=== PATIENT | female | born 1935 | race Caucasian/White ===

== ENCOUNTER 2020-11-14 12:08 | Emergency (ER) | payer MEDICARE ==
[~2020-11-14] VITALS: Ht 167.6 cm; Wt 90.9 kg
--- NOTE | 2020-11-14 12:20 | PHYS DOC ---
General Adult EDM: Chief Complaint: NEAR SYCOPE HPI: HPI: Patient is an 84-year-old female being seen in the ER for near syncopal at [employer]. She states she has a history of dizziness due to previous CVA and she had a dizzy episode while at [employer] and she had to lay down. She states that prior to her laying down on the pew, she took a meclizine tablet. Patient denies passing out. She states that her dizziness is worse with position changes. She was noted to be incontinent of urine. Patient is alert and oriented x4 she denies any nausea, vomiting, headache, vision changes. 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 (TAJ KAPLAN APRN) Review of Systems: Review of Systems: 14 body systems of the review of systems have been reviewed. See HPI for pertinent positive and negative responses, otherwise all other systems are negative, nonpertinent or noncontributory (TAJ KAPLAN APRN) Physical Exam: PE: Constitutional: Well developed, well nourished, no acute distress, non-toxic appearance. [] HENT: Normocephalic, atraumatic, bilateral external ears normal, oropharynx moist, no oral exudates, nose normal. [] Eyes: PERRLA, EOMI, 3 mm pupils bilaterally, conjunctiva normal, no discharge. [] Neck: Normal range of motion, no stridor Cardiovascular:Heart rate bradycardia rhythm, no murmur [] Lungs & Thorax: Bilateral breath sounds clear to auscultation [] Abdomen: Bowel sounds normal, soft, no tenderness, no masses, no pulsatile mas ses. [] Skin: Warm, dry, no erythema, no rash. [] Back: Normal range of motion Extremities: No tenderness, no cyanosis, no clubbing, ROM intact, no edema. [] Neurologic: Alert and oriented X 3, normal motor function, normal sensory function, no focal deficits noted, no pronator drift, patient moving all 4 extremities. Left-sided deficit from previous CVA, normal speech. [] Psychologic: Affect normal, judgement normal, mood normal. [] (TAJ KAPLAN APRN) Current Patient Data: Labs: Laboratory Tests Test 11/14/20 12:35 White Blood Count 5.2 x10^3/uL Red Blood Count 4.33 x10^6/uL Hemoglobin 13.1 g/dL Hematocrit 39.3 % Mean Corpuscular Volume 91 fL Mean Corpuscular Hemoglobin 30 pg Mean Corpuscular Hemoglobin Concent 33 g/dL Red Cell Distribution Width 12.8 % Platelet Count 185 x10^3/uL Neutrophils (%) (Auto) 59 % Lymphocytes (%) (Auto) 30 % Monocytes (%) (Auto) 10 % Eosinophils (%) (Auto) 1 % Basophils (%) (Auto) 1 % Neutrophils # (Auto) 3.1 x10^3uL Lymphocytes # (Auto) 1.5 x10^3/uL Monocytes # (Auto) 0.5 x10^3/uL Eosinophils # (Auto) 0.0 x10^3/uL Basophils # (Auto) 0.0 x10^3/uL Sodium Level 142 mmol/L Potassium Level 3.6 mmol/L Chloride Level 104 mmol/L Carbon Dioxide Level 29 mmol/L Anion Gap 9 Blood Urea Nitrogen 12 mg/dL Creatinine 0.8 mg/dL Estimated GFR (Cockcroft-Gault) 68.0 BUN/Creatinine Ratio 15 Glucose Level 111 mg/dL Calcium Level 8.8 mg/dL Total Bilirubin 0.5 mg/dL Aspartate Amino Transf (AST/SGOT) 20 U/L Alanine Aminotransferase (ALT/SGPT) 21 U/L Alkaline Phosphatase 102 U/L Troponin I Quantitative < 0.017 ng/mL Total Protein 6.2 g/dL Albumin 3.1 g/dL Albumin/Globulin Ratio 1.0 Current Medications Medications (Trade) Dose Ordered Sig/Corey Route PRN Reason Start Time Stop Time Status Last Admin Dose Admin Meclizine HCl (Antivert) 25 mg 1X ONCE PO 11/14/20 12:30 11/14/20 12:31 UNV Sodium Chloride 1,000 ml @ 1,000 mls/hr 1X ONCE IV 11/14/20 12:30 11/14/20 13:29 UNV 11/14/20 13:13 (TAJ KAPLAN APRN) EKG: EKG: EKG performed by ER staff at 1237 shows sinus bradycardia at a rate of 52, no STEMI read by Dr. Allen at 1242 [] (TAJ KAPLAN APRN) Radiology/Procedures: Radiology/Procedures: PROCEDURE: CT HEAD AND CERVICAL SPINE WO CT HEAD AND C-SPINE WO History: Reason: dizziness / Spl. Instructions: / History: Comparison: None. Technique: Noncontrast CT imaging was performed of the head and cervical spine. Coronal and sagittal reconstructions were performed. Exposure: One or more of the following individualized dose reduction techniques were utilized for this examination: 1. Automated exposure control 2. Adjustment of the mA and/or kV according to patient size 3. Use of iterative reconstruction technique. Findings: Head CT: No intracranial hemorrhage. No mass effect. No hydrocephalus. Postoperative changes left suboccipital craniectomy. Encephalomalacia within the underlying left cerebellum. 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 Moderate foci of decreased attenuation within the hemispheric white matter, most often due to chronic microvascular ischemia. Imaged orbits are unremarkable. Imaged paranasal sinuses and mastoid air cells are clear. No acute calvarial fracture. Cervical spine CT: Straightening of the normal cervical lordosis. Slight grade 1 anterolisthesis C3 on C4, C4-C5 and C7 on T1. Normal vertebral body height. No acute fracture. Moderate degenerative disc changes most prominent C4-C5 and C5-C6. Facet arthropathy. C1-C2 degenerative changes. Mild canal narrowing C5-C6. No high- grade canal stenosis. Multilevel neuroforaminal narrowing. Soft tissues unremarkable. Impression: Head CT: 1. No acute intracranial abnormality. 2. Postoperative changes left posterior fossa with pseudomeningocele extending inferiorly to the suboccipital soft tissues. Cervical spine CT: 1. No acute fracture or subluxation of the cervical spine. 2. Moderate multilevel cervical spondylosis. Electronically signed by: Arnold Enriquez DO (11/14/2020 1:13 PM) [facility] DICTATED AND SIGNED BY: ARNOLD ENRIQUEZ DO DATE: 11/14/20 1303 CC: TAJ KAPLAN APRN; IMAN PATRICK MD ~MTH0 0[] (TAJ KAPLAN APRN) Heart Score: C/O Chest Pain: No Risk Factors: Risk Factors: DM, Current or recent (<one month) smoker, HTN, HLP, family history of CAD, obesity. Risk Scores: Score 0 - 3: 2.5% MACE over next 6 weeks - Discharge Home Score 4 - 6: 20.3% MACE over next 6 weeks - Admit for Clinical Observation Score 7 - 10: 72.7% MACE over next 6 weeks - Early Invasive Strategies (TAJ KAPLAN APRN) Course & Med Decision Making: Course & Med Decision Making Pertinent Labs and Imaging studies reviewed. (See chart for details) Patient is an 84-year-old female being seen in the ER for near syncope at [employer]. Patient has a history of a CVA x1 year. She also has a history of dizziness. Her dizziness currently is worse with position changes. Work-up in the ER consisted of blood work, urinalysis and CT scan of head. Patient was given fluids and Antivert. It is likely that patient is experiencing her typical orthostatic hypotension. Patient's lab work is unremarkable. Her CT scan of her head was negative for any acute findings. Patient is laying comfortably in bed she has 8 she states that she does not feel dizzy while laying in bed. She takes Antivert at home and that does improve her symptoms. Patient given fluids in the ER. Patient will be discharged home to follow-up with her primary care provider. I discussed with patient all findings and diagnostic testing as well as the need to follow-up with PCP for further evaluation and treatment or return to the ER if any new or worsening symptoms. Strict return precautions were also discussed at length. Patient voiced understanding and agreement with the plan. Patient is hemodynamically stable at the time of disposition. (TAJ KAPLAN APRN) Course & Med Decision Making I was the Attending physician on the above date of service of this patient. This patient was evaluated, examined, treated, and dispositioned from the emergency department by the mid-level practitioner. Although I was working at the time , no assistance was requested. Electronically signed, Miladis Allen DO (MILADIS ALLEN DO) Naa Disclaimer: Naa Disclaimer: This electronic medical record was generated, in whole or in part, using a voice recognition dictation system. (TAJ KAPLAN APRN) Departure Departure: Impression: Primary Impression: Dizziness Disposition: 01 HOME / SELF CARE / HOMELESS Condition: GOOD Referrals: IMAN PATRICK MD (PCP) Patient Instructions: Dizziness Additional Instructions: You were seen in the ER today for near syncope. Your work-up in the ER is unremarkable. Your CT scan of your head does not show any new acute findings. Please continue to stay hydrated and take your Antivert as directed. You need to follow-up with your primary care provider tomorrow regarding your ER visit. If you develop chest pain, shortness of breath, intractable nausea or vomiting, headache, vision changes or syncope please return to the ER. EMERGENCY DEPARTMENT GENERAL DISCHARGE INSTRUCTIONS Thank you for coming to [facility] (ED) today and trusting us with you care. We trust that you had a positivie experience in our Emergency Department. If you wish to speak to the department management, you may call the director at [phone]. YOUR FOLLOW UP INSTRUCTIONS ARE FOLLOWS: 1. Do you have a private Doctor? If you do not have a private doctor, please ask for a resource list of physicians or clinics that may be able to assist you with follow up care. 2. The Emergency Physician has interpreted your x-rays. The X-Ray specialist will also review them. If there is a change in the findings, you will be notified in 48 hours when at all possible. 3. A lab test or culture has been done, your results will be reviewed and you will be notified if you need a change in treatment. ADDITIONAL INSTRUCTIONS AND INFORMATION: 1. Your care today has been supervised by a physician who is specially trained in emergency care. Many problems require more than one evaluation for a complete diagnosis and treatment. We recommend that you schedule your follow up appointment as recommended to ensure complete treatment of you illness or injury. If you are unable to obtain follow up care and continue to have a problem, or if your condition worsens, we recommend that you return to the ED. 2. We are not able to safely determine your condition over the phone nor are we able to give sound medical advice over the phone. For these safety reasons, if you call for medical advice we will ask you to come to the ED for further evaluation. 3. If you have any questions regarding these discharge instructions please call the ED at [phone]. SAFETY INFORMATION: In the interest of safety, wellness, and injury prevention; we encourage you to wear your sealbelt, if you smoke; quite smoking, and we encourage family to use a protective helmet for bicycling and other sporting events that present an increased risk for head injury. IF YOUR SYMPTOMS WORSEN OR NEW SYMPTOMS DEVELOP, OR YOU HAVE CONCERNS ABOUT YOUR CONDITION; OR IF YOUR CONDITION WORSENS WHILE YOU ARE WAITING FOR YOUR FOLLOW UP APPOINTMENT; EITHER CONTACT YOUR PRIMARY CARE DOCTOR, THE PHYSICIAN WHOSE NAME AND NUMBER YOU WERE GIVEN, OR RETURN TO THE ED IMMEDIATELY. TAJ KAPLAN APRN Nov 14, 2020 12:20 MILADIS ALLEN DO Nov 15, 2020 06:52
[2020-11-14] MEDS ORDERED: IV NORMAL SALINE 1,000ML 1,000 ML IV ONE (12:30)
[2020-11-14] MEDS ORDERED: MECLIZINE 12.5 MG TABLET. PO ONE (12:30)
--- NOTE | 2020-11-14 12:48 | EKG ---
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
[2020-11-14 12:49] LABS: BASO % 1 % (0-3); EOS % 1 % (0-3); HEMATOCRIT 39.3 % (36.0-47.0); HEMOGLOBIN 13.1 g/dL (12.0-15.5); LYMPH # 1.5 x10^3/uL (1.0-4.8); LYMPH % 30 % (24-48); MEAN CORPUSCULAR HEMOGLOBIN 30 pg (25-35); MEAN CORPUSCULAR HGB CONC 33 g/dL (31-37); MEAN CORPUSCULAR VOLUME 91 fL (79-100); MONO # 0.5 x10^3/uL (0.0-1.1); MONO % 10 % (0-9); NEUT # 3.1 x10^3uL (1.8-7.7); NEUT % 59 % (31-73); PLATELET COUNT 185 x10^3/uL (140-400); RED BLOOD COUNT 4.33 x10^6/uL (3.50-5.40); RED CELL DISTRIBUTION WIDTH 12.8 % (11.5-14.5); WHITE BLOOD COUNT 5.2 x10^3/uL (4.0-11.0)
[2020-11-14 12:58] LABS: CALCIUM 8.8 mg/dL (8.5-10.1); CREATININE 0.8 mg/dL (0.6-1.0); POTASSIUM 3.6 mmol/L (3.5-5.1)
[2020-11-14 13:03] LABS: ALBUMIN 3.1 g/dL (3.4-5.0); TOTAL BILIRUBIN 0.5 mg/dL (0.2-1.0); TOTAL PROTEIN 6.2 g/dL (6.4-8.2)
--- NOTE | 2020-11-14 13:16 | RAD ---
CT HEAD AND C-SPINE WO History: Reason: dizziness / Spl. Instructions: / History: Comparison: None. Technique: Noncontrast CT imaging was performed of the head and cervical spine. Coronal and sagittal reconstructions were performed. Exposure: One or more of the following individualized dose reduction techniques were utilized for thi s examination: 1. Automated exposure control 2. Adjustment of the mA and/or kV according to patient size 3. Use of iterative reconstruction technique. Findings: Head CT: No intracranial hemorrhage. No mass effect. No hydrocephalus. Postoperative changes left suboccipital craniectomy. Encephalomalacia within the underlying left cere bellum. 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 2 x 2.9 cm. Moderate foci of decreased attenuation within the hemispheric white matter, most often due to chronic microvascular ischemia. Imaged orbits are unremarkable. Imaged paranasal sinuses and mastoid air cells are clear. No acute ca lvarial fracture. Cervical spine CT: Straightening of the normal cervical lordosis. Slight grade 1 anterolisthesis C3 on C4, C4-C5 and C7 on T1. Normal vertebral body height. No acute fracture. Moderate degenerative disc changes most prominent C4-C5 and C5-C6. Facet arthropathy. C1-C2 degenerat sushila changes. Mild canal narrowing C5-C6. No high-grade canal stenosis. Multilevel neuroforaminal narr owing. Soft tissues unremarkable. Impression: Head CT: 1. No acute intracranial abnormality. 2. Postoperative changes left posterior fossa with pseudomeningocele extending inferiorly to the sub occipital soft tissues. Cervical spine CT: 1. No acute fracture or subluxation of the cervical spine. 2. Moderate multilevel cervical spondylosis. Electronically signed by: Arnold Enriquez DO (11/14/2020 1:13 PM) [facility]
[2020-11-14 14:10] VITALS: BP 138/74
== END 2020-11-14 14:10 | disposition home or self-care (01) ==
LOC: ER 12:08
DX: R42 Dizziness and giddiness (principal); R32 Unspecified urinary incontinence
CPT/HCPCS: 36415; 70450; 72125; 80053; 84484; 85025; 93005; 96360; 99285; J7030